=== PATIENT | male | born 1995 | race American Indian/Alaskan Native ===

== ENCOUNTER 2017-03-16 13:28 | Emergency (ER) | payer MEDICAID ==
[2017-03-16] MEDS ORDERED: Acetaminophen 500 MG Tab PO ONE (14:45)
[2017-03-16] MEDS ORDERED: Ibuprofen 600 MG Tab PO ONE (14:45)
[2017-03-16 14:59] VITALS: BP 119/78
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
== END 2017-03-16 14:55 | disposition home or self-care (01) ==
LOC: FB.ED 13:28
DX: S22.42XA Multiple fractures of ribs, left side, initial encounter for closed fracture (principal); F90.9 Attention-deficit hyperactivity disorder, unspecified type; F32.9 Major depressive disorder, single episode, unspecified; Z79.899 Other long term (current) drug therapy; Y09 Assault by unspecified means
CPT/HCPCS: 71101; 99283; A9270